=== PATIENT | female | born 1955 | race Caucasian/White ===

== ENCOUNTER → 2025-07-08 16:34 | Outpatient (REF) | payer MEDICARE, OTHER, SELFPAY | LOC: PAVMRI 16:34 | PROVIDERS: ATTENDING PHYSICIAN Otolaryngology; FAMILY PHYSICIAN Internal Medicine | DX: H90.41 Sensorineural hearing loss, unilateral, right ear, with unrestricted hearing on the contralateral side (principal) | CPT/HCPCS: 70551 ==

== ENCOUNTER 2025-07-23 06:37 | Day surgery (SDC) | payer MEDICARE, OTHER, SELFPAY | END 2025-07-23 14:45 | disposition home or self-care (01) | LOC: GI 06:37 | PROVIDERS: ATTENDING PHYSICIAN Surgery | DX: Z12.11 Encounter for screening for malignant neoplasm of colon (principal); Z86.0100 Personal history of colon polyps, unspecified; D12.2 Benign neoplasm of ascending colon; D12.3 Benign neoplasm of transverse colon | CPT/HCPCS: 45385; 45381; 45380; 88305 ==

== ENCOUNTER 2025-07-25 07:16 | Inpatient (IN) | payer MEDICARE, OTHER, SELFPAY ==
[2025-07-23 15:04] VITALS: BP 131/72
[2025-07-23] MEDS: FLAGYL 500 MG 100 IV (19:12)
[2025-07-23 19:16] LABS: Hematocrit 37.7 % (37.0-47.0); Hemoglobin 12.6 g/dL (12.0-16.0); Mean Corp Hgb Conc. 33.4 g/dL (33.0-37.0); Mean Corpuscular Volume 88.1 fL (81.0-99.0); Nucleated Red Blood Cells % 0 %; Platelet Count 260 10^3/uL (130-400); Red Cell Dist. Width 12.5 % (11.5-14.5)
[2025-07-23 19:17] VITALS: BP 114/62
[2025-07-23 19:18] VITALS: BMI 31.2
--- NOTE | 2025-07-23 19:24 | ED.GENMED ---
History of Present Illness
General
Chief Complaint: Abdominal Symptoms
Time Seen by Provider: 07/23/25 18:47
History of Present Illness
History of Present Illness:
62-year-old female presents to the emergency department for evaluation of an iatrogenic bowel injury. Underwent colonoscopy today and during polypectomy, a full-thickness mucosal tear was created. This was repaired intraoperatively however she was
referred to the ED for admission and IV antibiotics. At this time she has no complaints and denies any pain
Review of Systems
Review of Systems
Allergies reviewed?: Yes
All Other Systems: ROS reviewed and negative except as documented in HPI and ROS
Phy Exam
Physical Exam
Physical Exam:
GEN: Well appearing, NAD, WDWN
HEENT: Oral mucosa moist, no scleral icterus
Cardiac: Regular rate
Lung: No respiratory distress, no tachypnea
Abdomen: Soft, nontender
MSK: No gross deformity or injuries
Skin: Good color, no pallor or jaundice, no rashes
Neuro: AO x3, moves all extremities freely
Psych: Calm, cooperative
Course
Orders/Labs/Results
Orders:
Orders
07/23/25 Dinner
NPO
Allow oral meds: Yes
Allow clear liquids: Sips of Clears
07/23/25 18:47
LevoFLOXacin 750 MG/150 ML [Levaquin] 750 mg in 150 ml IV NOW
MetroNIDAZOLE 500 MG/100 ML [Flagyl 500 mg] 100 ml IV NOW
07/23/25 19:08
Complete Blood Count/With Diff Urgent
07/23/25 20:02
Basic Metabolic Panel Urgent
07/23/25 20:24
Admit/Transfer Patient As Directed
Co-Sign Provider:
Level of Care: Observation services
Assign to:: Medical/Surgical
Physician / Group: Mandeep
Diagnosis: colonoscopy syndrome
Code Status As Directed
Resuscitation Status: Full Code
PRN Pain Medication Management As Directed
May give lesser potent ordered pain med per pt: Yes
preference::
Protocol:: Medication orders for pain may be administered in a
manner that supports deferring to patient preference
when the pt is:
- Requesting an ordered lesser potent pain medication.
Least to most potent pain medications are defined
as: acetaminophen < NSAID < tramadol < opioids
(morphine, oxycodone, hydromorphone).
- Requesting a lesser dose of the same medication IF
ORDERED.
- Requesting a less intrusive route of administration
if both routes are prescribed by the provider (PO <
IV).
07/23/25 21:35
Acetaminophen [Tylenol] 650 mg PO Q4HPRN PRN
Bisacodyl [Dulcolax] 10 mg RECTAL [id number] PRN
Docusate W/Senna [Senokot-S] 1 tablet PO BIDPRN PRN
Lactated Ringers [Lr] 1,000 ml IV 100 mls/hr
Ondansetron Injectable [Zofran] 4 mg IV Q6HPRN PRN
Polyethylene Glycol Powder [Miralax] 17 grams PO DAILYPRN PRN
07/23/25 21:35
ColoRectal Surgery Consult Routine
Consulting Provider: Jaret Osborn
Was physician already notified: Yes
Activity As Directed
Activity Level: With Assistance
Vital Signs As Directed
Frequency: Per unit guidelines
Pulse Ox/spot Check [RESP] Routine
Quantity: 1
DX Deep Vein Thrombosis Video Routine
07/23/25 21:42
HYDROmorphone [Dilaudid] 0.25 mg IV Q4HPRN PRN
07/24/25 06:00
Basic Metabolic Panel IN AM
Complete Blood Count/No Diff IN AM
Magnesium IN AM
07/24/25 08:00
Metoprolol Xl [Toprol Xl] 25 mg PO DAILY
07/24/25 18:00
Enoxaparin Sodium [Lovenox] 40 mg SC QPM
Rosuvastatin Calcium [Crestor] 10 mg PO QPM
Abnormal Lab Results
07/23/25 07/23/25
19:08 20:02
WBC 15.7 H 10^3/uL
(4.8-10.8)
Abs Immat Gran (auto) 0.1 H 10^3/uL
(0-0.05)
Absolute Neuts (auto) 12.4 H 10^3/uL
(1.4-6.5)
Absolute Monos (auto) 0.8 H 10^3/uL
(0.1-0.6)
Neutrophils % 78.9 H %
(42.2-75.2)
Lymphocytes % 14.9 L %
(20.5-51.1)
Carbon Dioxide 21 L mmol/L
(22-30)
Creatinine 0.5 L mg/dL
(0.6-1.0)
07/23/25 19:08
07/23/25 20:02
Vital Signs
Initial and Last Documented VS:
Initial Vital Signs
Temp Pulse Resp BP Pulse Ox
98.2 F 81 16 131/72 97
07/23/25 15:04 07/23/25 15:04 07/23/25 15:04 07/23/25 15:04 07/23/25 15:04
Last Documented Vital Signs
Temp Pulse Resp BP Pulse Ox
97.9 F 85 15 114/62 93
07/23/25 19:17 07/23/25 19:17 07/23/25 19:17 07/23/25 19:17 07/23/25 19:25
MDM/Problems Addressed
MDM/Problems Addressed:
No indication for imaging from my standpoint as the patient is quite comfortable, will admit for observation on IV antibiotic
*Pulse Oximetry
SaO2: 93
Oxygen Mode of Delivery: Room air
Patient hypoxic: no
*Critical Care Note
Total Time (30-74mins, 75-104mins- exclusive of procedures): Not Applicable
ED Attending Note
-
Portions of this chart may have been created with voice recognition software.� Occasional wrong word or��sound alike� substitutions may have occurred due to the inherent limitations of voice recognition software.
Discharge Plan
Departure
Patient Disposition: Admit
Date of Disposition: 07/23/25
Time of Disposition: :25
Presentation/result/management discussed w/ accepting MD/DO: Hospitalist
Discharge Problem:
Iatrogenic Bowel Injury
Interventions
Interventions:
*Risk Screen - Suicide Last Done: 07/23/25 15:04
*General Assessment Last Done: 07/23/25 15:04
*Neglect/Abuse Screening Last Done: 07/23/25 19:04
*ED COVID-19 Vaccine History Last Done: 07/23/25 15:04
*ED Influenza Vaccine History Last Done: 07/23/25 15:04
[facility] Fall Risk Assessment Tool Last Done: 07/23/25 19:17
BC-Xyugcy-Zwyorrbjkj Assessment Last Done: 07/23/25 19:04
[2025-07-23] MEDS: LEVAQUIN 150 IV (20:03)
--- NOTE | 2025-07-23 20:14 | HPS.HSE ---
Family Physician
-
Family Physician: Jessica Sutton
Chief Complaint
-
Status post colonoscopy
History of Present Illness
Patient is a 70-year-old female with past medical history significant for hypertension, hyperlipidemia who presents to the emergency department following a colonoscopy.
During the procedure patient suffered iatrogenic full-thickness bowel injury. It was repaired intraoperatively. Patient sent for admission by Dr. Osborn for observations and serial examinations.
On arrival in the emergency department she has been afebrile, blood pressure was 124/60 with a pulse rate of 85 and oxygen saturation of 97% on room air.
She does have a white count 15.7, hemoglobin is unremarkable. BUN and creatinine as well as electrolytes are pending at this time.
Medical History
Past Medical History
Past Medical History: Reports HTN and Hypercholesterolemia
Past Surgical History: Reports Gynocological (Hysterectomy) and Other (Left mastectomy)
Social History
Tobacco: Non-smoker
Alcohol: None
Drug: None
Personal:
Living: With Family
Family History
Family History: Not pertinent
Allergies / Home Medications
Allergies reflects when Allergies were last updated in [facility].
Home Medications with original date entered in [facility]
Allergy/Medication List:
Allergies
Allergy/AdvReac Type Severity Reaction Status Date / Time
amoxicillin Allergy Unknown Verified 07/23/25 15:07
Home Medications
metoprolol succinate 25 mg tablet,extended release 24 hr (Toprol XL) 25 mg PO DAILY Heart Disease/Condition 07/23/25
rosuvastatin 10 mg tablet (Crestor) 10 mg PO QPM High Cholesterol 07/23/25
Review of Systems
-
Constitutional: Reports No Symptoms
EENT: Reports No Symptoms
Respiratory: Reports No Symptoms
Cardiac: Reports No Symptoms
Abdomen/GI: Reports No Symptoms
: Reports No Symptoms
Musculoskeletal: Reports No Symptoms
Skin: Reports No Symptoms
Neurological: Reports No Symptoms
Endocrine: Reports No Symptoms
Hematologic/Lymphatic: Reports No Symptoms
Psych: Reports No Symptoms
Physical Exam
Vital Signs
Vital Signs
Temp Pulse Resp BP Pulse Ox
97.9 F 85 15 114/62 93
07/23/25 19:17 07/23/25 19:17 07/23/25 19:17 07/23/25 19:17 07/23/25 19:25
Physical Exam
General: Well Developed, Well Nourished and No Apparent Distress
HEENT: NormoCephalic, Moist mucous membranes and Atraumatic
Respiratory: Clear
Cardiac: S1/S2 and Regular Rhythm; No Murmur or Rub
GI: Soft, Non Tender, Non Distended and Normal Bowel Sounds; No Organomegaly
Rectal: Deferred by Provider
Musculoskeletal: No Clubbing, No Cyanosis and No Edema
Skin: No Rash
Neuro: Nonfocal/grossly intact
Laboratory Results
-
07/23/25 19:08
Laboratory Results
Total Bilirubin Cancelled 07/23/25 19:08
AST Cancelled 07/23/25 19:08
ALT Cancelled 07/23/25 19:08
Alkaline Phosphatase Cancelled 07/23/25 19:08
Impression/Plan
-
IMPRESSION:
70-year-old presented to the emergency department status post colonoscopy with intraprocedural iatrogenic full-thickness bowel injury status post total repair there. Patient came directly from the street. She does not have any abdominal pain.
Abdominal exam is benign with no tenderness, no distention, normal active bowel sounds. Patient is been n.p.o. since yesterday. She is afebrile and hemodynamically stable at this time. CBC shows leukocytosis but otherwise hemoglobin is stable.
Electrolytes are still pending.
PLAN:
Status post colonoscopy with full-thickness bowel wound status post repair
-Admit to [facility]
-N.p.o. for now except sips, advance to clears in a.m. if stable overnight
-Blood cultures afebrile
� Started on Levaquin and metronidazole
� Serial examinations
� If patient becomes symptomatic will obtain imaging and repeat blood work
� Pain control antiemetics
� Colorectal consult
DVT prophylaxis�Lovenox subcu for now
CODE STATUS�full code
[2025-07-23 20:29] LABS: Blood Urea Nitrogen 14 mg/dl (7-17); Calcium 8.8 mg/dl (8.4-10.2); Carbon Dioxide 21 mmol/L (22-30); Chloride 107 mmol/L (98-107); Estimated Creatinine Clearance 93 ml/min; Glucose 71 mg/dl (70-99); Sodium 136 mmol/L (135-145); eGFR > 60.00
--- NOTE | 2025-07-23 20:32 | CON.CRS ---
Consultation
-
Date/Time Consultation Requested: 07/23/2025
Date/Time Consultation Performed: 07/23/2025
Performing Provider: Anurag
Reason for Consultation: Colonoscopic perforation
Medical History
-
Chief Complaint: Status post colonoscopy
History of Present Illness:
Patient is a 70-year-old female who underwent a colonoscopy by me earlier today for a positive Cologuard. She does have a personal history of polyps. During the colonoscopy she had a small ascending colon that I removed. This looks benign. There
was a larger 3 cm polyp which was sessile in the proximal transverse colon. I removed this via raising it with Ludy view and using a hot snare to remove it. After removal I was concerned with the appearance of the polypectomy site. It the had to
meet the look of a full-thickness injury. I did ultimately call Dr. Shay Amador the advanced endoscopist into the room and the concurred. He he himself placed 5 clips to close the defect successfully. The patient also had 2 other polyps in her colon
that appeared benign than the left unattended. Of note during the procedure the patient never had abdominal distention and had a nice soft abdomen. In recovery room her vitals were stable and she was nontender. However on discussion with Dr. Amador
he suggested admitting to the hospital, making the patient n.p.o., and starting empiric antibiotics. I felt this was reasonable. I discussed this with the patient and she was agreeable. She was directed to go to the ER. The ER staff was updated.
She has subsequently been admitted to the hospitalist service. At this recently evaluated her and she continues to deny abdominal pain.
Vitals in the ER have been normal. She has been afebrile. Blood work does show an elevated white count of 15.7. Remainder of the CBC and electrolytes are unremarkable.
Past Medical History
Past Medical History: HTN, Hypercholesterolemia and Other (Sleep apnea, migraines)
Past Surgical History: Other (Left mastectomy and hysterectomy)
Social History
Tobacco: Non-Smoker
Alcohol: Occasional
Personal:
Living: With Family
Family History
Family History: Other (Negative for colorectal cancer)
Allergies / Home Medications
Allergy/AdvReac Type Severity Reaction Status Date / Time
amoxicillin Allergy Unknown Verified 07/23/25 15:07
�Medication �Instructions �Recorded �Confirmed �Type
metoprolol succinate 25 mg 25 mg PO DAILY Heart 07/23/25 07/23/25 History
tablet,extended release 24 hr Disease/Condition
(Toprol XL)
rosuvastatin 10 mg tablet (Crestor) 10 mg PO QPM High Cholesterol 07/23/25 07/23/25 History
Review of Systems
-
A 10 point review of systems was completed, and was negative except as per HPI.
Physical Exam
Vital Signs
Temp 97.9 F 07/23/25 19:17
Pulse 85 07/23/25 19:17
Resp Rate 15 07/23/25 19:17
Blood pressure 114/62 07/23/25 19:17
SaO2 93 07/23/25 19:25
07/22/25 07/23/25 07/24/25
06:59 06:59 06:59
Actual Weight 82.5 kg
Body Mass Index (BMI) 31.2
Lab Results / Allergies
07/23/25 19:08
07/23/25 20:02
WBC 15.7 10^3/uL (4.8-10.8) H 07/23/25 19:08
Hgb 12.6 g/dL (12.0-16.0) 07/23/25 19:08
Hct 37.7 % (37.0-47.0) 07/23/25 19:08
Plt Count 260 10^3/uL (130-400) 07/23/25 19:08
Abs Immat Gran (auto) 0.1 10^3/uL (0-0.05) H 07/23/25 19:08
Neutrophils % 78.9 % (42.2-75.2) H 07/23/25 19:08
Allergy/AdvReac Type Severity Reaction Status Date / Time
amoxicillin Allergy Unknown Verified 07/23/25 15:07
Physical Exam
General: Well Developed
HEENT: Normocephalic
Respiratory: Clear
Cardiac: S1/S2
GI: Soft, Non Tender and Non Distended
Skin: Warm
Neuro: Awake and AO x 3
Psych: Calm
Data Reviewed
-
Labs: Labs Reviewed by me and Discussed with Patient
Assessment / Plan
-
70-year-old female with colonoscopic full-thickness colon injury secondary to polypectomy earlier today that was addressed via placement of clips. Vitals and labs reasonable with the exception of some leukocytosis. No abdominal pain or tenderness.
No need for surgical intervention at this point. Agree with diet restriction, IV fluids, and serial abdominal exams. Empiric antibiotics reasonable. Will follow along closely.
[2025-07-23] MEDS: LR 1000 IV (22:02)
[2025-07-23 22:47] VITALS: BP 105/60
[2025-07-24 05:55] LABS: Hematocrit 37.3 % (37.0-47.0); Hemoglobin 12.6 g/dL (12.0-16.0); Mean Corp Hgb Conc. 33.8 g/dL (33.0-37.0); Mean Corpuscular Volume 86.5 fL (81.0-99.0); Red Cell Dist. Width 12.5 % (11.5-14.5)
[2025-07-24 05:56] LABS: Blood Urea Nitrogen 15 mg/dl (7-17); Calcium 8.8 mg/dl (8.4-10.2); Carbon Dioxide 20 mmol/L (22-30); Chloride 110 mmol/L (98-107); Estimated Creatinine Clearance 93 ml/min; Glucose 59 mg/dl (70-99); Magnesium 2.1 mg/dl (1.6-2.3); Potassium 4.3 mmol/L (3.5-5.1); Sodium 137 mmol/L (135-145); eGFR > 60.00
[2025-07-24 06:00] VITALS: BMI 31.2
[2025-07-24] MEDS: FLAGYL 500 MG 100 IV ×3 (08:02→20:54)
[2025-07-24] MEDS: TOPROL XL 25 MG PO (08:07)
[2025-07-24 08:26] LABS: Glucose - Point of Care 64 mg/dl (70-99)
[2025-07-24 08:26] LABS: Glucose - Point of Care 77 mg/dl (70-99)
--- NOTE | 2025-07-24 11:16 | W.PN.CRS1 ---
Today's Communication / Plan
-
Clears
Trend labs
Observe another day
Continue antibiotics
Assessment/Plan
-
70-year-old female with colonoscopic full-thickness colon injury secondary to polypectomy earlier today that was addressed via placement of clips.
vitals: wnl
WBC: 12.0 (15.2)
-Advance diet to clears today
- Continue to trend lab work
- Out of bed as tolerated
- Pathology from colonoscopy is pending
- Continue IV antibiotics
- Recommend keeping 1 more day for observation. Anticipate advancement to a diet and discharge tomorrow if continues to do well.
Subjective Data
Subjective Data
Date of Service: July 24, 2025
Patient states she is hungry. She denies nausea or vomiting. She has little to no pain. No bowel function yet.
Objective Data
-
Vital Signs
Temp Pulse Resp BP Pulse Ox
97.8 F 99 16 124/67 97
07/23/25 22:47 07/24/25 08:08 07/24/25 08:08 07/24/25 08:07 07/24/25 08:08
Intake & Output
07/23/25 07/24/25 07/25/25
06:59 06:59 06:59
Intake Total 800 / 800
Balance 800 / 800
Intake:
IV fluids (Total) 800 / 800
Lr 1,000 ml @ 100 mls/hr IV . 800 / 800
Q10H EPHRAIM Rx#:[id number]
Other:
Number of unmeasured voidings 2
Lab Results
07/24/25 04:54
07/24/25 04:54
Physical Exam
-
General: No Acute Distress and AOx3
Abdomen: Soft, Non Distended and Non Tender
Skin: Warm and Dry
[2025-07-24 11:29] VITALS: BP 119/70
--- NOTE | 2025-07-24 12:11 | W.PN.HOSP.TC ---
Today's Communication/Plan
-
Clears
Assessment / Plan
Assessment / Plan
Gen-AAOx3, NAD
HEENT-NC, AT, anicteric, clear oral mm
Neck-supple
CV-reg, no M, +S1/S2
Lungs-clear B/L
Abd-soft, NT, ND
Ext-no edema
Musculoskeletal-no cyanosis, clubbing
Skin-warm and dry
Neuro-grossly non-focal
Psych-calm, cooperative
Postpolypectomy syndrome -asymptomatic. Patient denies abdominal pain or bleeding. Colonoscopy performed 07/23. Multiple polyps resected.
No evidence of infection. Start clears as per colorectal surgery. Continue empiric antibiotics.
Colorectal surgery recommends monitoring overnight.
Leukocytosis noted, improving. Afebrile. No evidence of sepsis.
Essential hypertension -stable.
Hyperlipidemia -rosuvastatin.
Obesity due to excess calories
Full code
Anticipated Discharge: Within 24 hours
Subjective/Interval History
-
Date of Service: July 24, 2025
Patient seen and examined, no complaints.
Objective Data
-
Labs:
Laboratory Results
07/24/25
04:54
WBC 12.0 H
Hgb 12.6
Hct 37.3
Plt Count
Sodium 137
Potassium 4.3
Chloride 110 H
Carbon Dioxide 20 L
BUN 15
Creatinine 0.6
Glucose 59 L
Calcium 8.8
Vital Signs:
Vital Signs
Temp Pulse Resp BP Pulse Ox
98.2 F 84 16 119/70 99
07/24/25 11:29 07/24/25 11:29 07/24/25 11:29 07/24/25 11:29 07/24/25 11:29
I&O
07/23/25 07/24/25 07/25/25
06:59 06:59 06:59
Intake Total 800 / 800
Balance 800 / 800
Review of Systems
-
History Source: Patient
All other systems: Reviewed and negative
[2025-07-24 16:21] VITALS: BP 104/57
--- NOTE | 2025-07-24 16:25 | CM ---
Chart reviewed ELIAS reviewed
Met with pt and at bedside
Lives in [address]
no DME
PCP Jessica Sutton
[facility] in [place]
no hx of VN nor SNF
DCP is to go home
can drive her home
CM to follow up with any needs
[2025-07-24] MEDS: CRESTOR 10 MG PO (18:12)
[2025-07-24] MEDS: LEVAQUIN 150 IV (18:12)
[2025-07-24] MEDS: LOVENOX 40 MG SC (18:12)
[2025-07-24 22:34] LABS: Glucose - Point of Care 85 mg/dl (70-99)
--- NOTE | 2025-07-24 22:45 | GLUCOSE ---
Addendum entered by Sascha Hurtado RN 07/25/25 03:08:
0300 AccuCheck was 91
Original Note:
SITUATION: am hypoglycemia noted - glucose check at 2223 was 85- will check again at 299
BACKGROUND:
ASSESSMENT:
RECOMMENDATION:
[2025-07-24 23:01] VITALS: BP 103/54
[2025-07-25] MEDS: FLAGYL 500 MG 100 IV (03:03)
[2025-07-25 03:18] LABS: Glucose - Point of Care 91 mg/dl (70-99)
[2025-07-25 07:49] VITALS: BP 123/72
[2025-07-25] MEDS: TOPROL XL 25 MG PO (07:49)
--- NOTE | 2025-07-25 07:51 | W.PN.HOSP.TC ---
Addendum entered and electronically signed by Mo Lazaro DO 07/25/25 09:30:
Spoke with Dr. Osborn, okay to discharge home today. 5 days of Augmentin. Outpatient follow-up.
Original Note:
Today's Communication/Plan
-
CBC
Await colorectal input
Assessment / Plan
Assessment / Plan
Gen-AAOx3, NAD
HEENT-NC, AT, anicteric, clear oral mm
Neck-supple
CV-reg, no M, +S1/S2
Lungs-clear B/L
Abd-soft, NT, ND
Ext-no edema
Musculoskeletal-no cyanosis, clubbing
Skin-warm and dry
Neuro-grossly non-focal
Psych-calm, cooperative
Postpolypectomy syndrome -asymptomatic. Patient denies abdominal pain or bleeding. Colonoscopy performed 07/23. Multiple polyps resected.
No evidence of infection. Tolerating clear liquid diet. Continue empiric antibiotics.
CBC pending for today.
Advance diet today if okay with colorectal surgery. Possible discharge if cleared by her surgical service.
Essential hypertension -stable.
Hyperlipidemia -rosuvastatin.
Obesity due to excess calories
Full code
Anticipated Discharge: Today
Subjective/Interval History
-
Date of Service: July 25, 2025
Patient seen and examined, no complaints.
Objective Data
-
Labs:
Laboratory Results
07/25/25
06:00
WBC Pending
Hgb Pending
Hct Pending
Plt Count Pending
Vital Signs:
Vital Signs
Temp Pulse Resp BP Pulse Ox
97.8 F 72 16 123/71 96
07/25/25 07:49 07/25/25 07:49 07/25/25 07:49 07/25/25 07:49 07/25/25 07:49
I&O
07/24/25 07/25/25 07/26/25
06:59 06:59 06:59
Intake Total 800 / 800 1600 / 1600
Balance 800 / 800 1600 / 1600
Review of Systems
-
History Source: Patient
All other systems: Reviewed and negative
[2025-07-25 08:37] LABS: Hematocrit 41.4 % (37.0-47.0); Hemoglobin 13.7 g/dL (12.0-16.0); Mean Corp Hgb Conc. 33.1 g/dL (33.0-37.0); Mean Corpuscular Volume 87.7 fL (81.0-99.0); Nucleated Red Blood Cells % 0 %; Platelet Count 285 10^3/uL (130-400); Red Cell Dist. Width 12.7 % (11.5-14.5)
[2025-07-25 08:43] VITALS: BMI 31.2
--- NOTE | 2025-07-25 09:31 | W.DS.TRANS ---
DC Summary - [facility]
-
Discharge Instructions:
Discharge Diagnosis/Procedures Postpolypectomy syndrome
Diet Regular
Activity As tolerated
Driving Restrictions As prior to admission
Bathing Restrictions None
Instructions:
Stand-Alone Forms:
Changes to Home Medications: No
Discharge Medications:
DC Medications w/original date entered in [facility]
metoprolol succinate 25 mg tablet,extended release 24 hr (Toprol XL) 25 mg PO DAILY Heart Disease/Condition 07/23/25
rosuvastatin 10 mg tablet (Crestor) 10 mg PO QPM High Cholesterol 07/23/25
amoxicillin 875 mg-potassium clavulanate 125 mg tablet 1 tab PO BID #10 tabs 07/25/25
Home Medication Changes
Pending Results: No
--- NOTE | 2025-07-25 09:40 | W.PN.CRS1 ---
Today's Communication / Plan
-
discharge
finish course of abx
Assessment/Plan
-
70-year-old female with colonoscopic full-thickness colon injury secondary to polypectomy earlier today that was addressed via placement of clips.
vitals: wnl
WBC: 8.5 (12.0, 15.2)
- Advance diet to regular diet
- Out of bed as tolerated
- Pathology from colonoscopy is pending
- Continue IV antibiotics- convert to oral po antibiotics for 5 more days
- Okay for d/c from our perspective. Follow up in a few weeks with Dr. Osborn in the office. Discussed with patient.
Subjective Data
Subjective Data
Date of Service: July 25, 2025
Patient states she feels well. Denies nausea or vomiting. Pain is controlled. She tolerated clears. Not that hungry.
Objective Data
-
Vital Signs
Temp Pulse Resp BP Pulse Ox
97.8 F 72 16 123/71 96
07/25/25 07:49 07/25/25 07:49 07/25/25 07:49 07/25/25 07:49 07/25/25 07:49
Intake & Output
07/24/25 07/25/25 07/26/25
06:59 06:59 06:59
Intake Total 800 / 800 1600 / 1600
Balance 800 / 800 1600 / 1600
Intake:
Oral fluids 1200 / 1200
IV fluids (Total) 800 / 800
Lr 1,000 ml @ 100 mls/hr IV . 800 / 800
Q10H EPHRAIM Rx#:[id number]
IV piggybacks 400 / 400
Other:
Number of unmeasured voidings 2
Number of approximated MODERATE 1
amounts of urine
Number of approximated LARGE 3
amounts of urine
Lab Results
07/25/25 08:11
07/24/25 04:54
Physical Exam
-
General: No Acute Distress and AOx3
Abdomen: Soft, Non Distended and Non Tender
Skin: Warm and Dry
Incision: Clear, Dry, Intact
--- NOTE | 2025-07-25 10:34 | CM ---
Patient ready for discharge
IMM reviewed with patient
will pick her up
no needs identified and pt is anxious about going home
[2025-07-25 11:44] VITALS: BP 130/79
--- NOTE | 2025-07-25 11:44 | W.DS.TRANS ---
DC Summary - [facility]
-
Discharge Instructions:
Discharge Diagnosis/Procedures Postpolypectomy syndrome
Diet Regular
Activity As tolerated
Driving Restrictions As prior to admission
Bathing Restrictions None
Instructions:
Stand-Alone Forms:
Changes to Home Medications: No
Discharge Medications:
DC Medications w/original date entered in [facility]
metoprolol succinate 25 mg tablet,extended release 24 hr (Toprol XL) 25 mg PO DAILY Heart Disease/Condition 07/23/25
rosuvastatin 10 mg tablet (Crestor) 10 mg PO QPM High Cholesterol 07/23/25
levofloxacin 750 mg tablet 750 mg PO DAILY #5 tabs 07/25/25
metronidazole 500 mg tablet 500 mg PO BID #10 tabs 07/25/25
Home Medication Changes
Pending Results: No
== END 2025-07-25 12:00 | disposition home or self-care (01) | DRG 395 ==
LOC: 1 ACUTE 07:16
PROVIDERS: Physician Assistant; ADMITTING PHYSICIAN Internal Medicine; ATTENDING PHYSICIAN Hospitalist; CONSULT PHYSICIAN Surgery; EMERGENCY PHYSICIAN Emergency Medicine; FAMILY PHYSICIAN Internal Medicine
DX: K91.89 Other postprocedural complications and disorders of digestive system (principal); Y83.8 Other surgical procedures as the cause of abnormal reaction of the patient, or of later complication, without mention of misadventure at the time of the procedure; I10 Essential (primary) hypertension; E78.00 Pure hypercholesterolemia, unspecified
CPT/HCPCS: 80048; 82962; 83735; 85025; 85027